=== PATIENT | female | born 1935 | race Caucasian/White ===

== ENCOUNTER → 2016-07-07 | Outpatient (CLI) | payer MEDICARE | END | disposition home or self-care (01) | LOC: PCVCCLINIC 15:00 | PROVIDERS: ATTEND Internal Medicine Cardiovascular Disease | DX: I48.91 Unspecified atrial fibrillation (principal); E78.5 Hyperlipidemia, unspecified; G89.29 Other chronic pain; I10 Essential (primary) hypertension; R60.9 Edema, unspecified; I87.2 Venous insufficiency (chronic) (peripheral) | CPT/HCPCS: 80061; 93005; G0463 ==

== ENCOUNTER → 2017-03-16 | Outpatient (CLI) | payer MEDICARE ==
--- NOTE | 2017-03-16 17:01 | PCVCIMAG ---
APPROVED REPORT Study performed: 03/16/2017 14:36:46 EXAM: Comprehensive 2D, Doppler, and color-flow Echocardiogram Patient Location: Echo lab Status: routine BSA: 1.80 HR: 73 bpmBP: 138/80 mmHg Rhythm: NSR Other Information Study Quality: Technically Limited Indications Atrial fib. Hypertension, Hyperlipidemia. Fatigue 2D Dimensions IVSd: 9.57 (7-11mm)LVOT Diam: 18.28 (18-24mm) LVDd: 44.83 mm PWd: 7.47 (7-11mm)Ascending Ao: 35.21 (22-36mm) LVDs: 38.03 (25-40mm) Left Atrium: 39.55 (27-40mm) Aortic Root: 27.93 mm LV Single Plane 4CH: 64.43 % Robison's LVEF: 32.25 % Volumes Left Atrial Volume (Systole) Single Plane 4CH: 42.20 mLSingle Plane 2CH: 58.61 mL LA ESV Index: 28.00 mL/m2 Aortic Valve AoV Peak David.: 1.65 m/s AO Peak Gr.: 10.95 mmHgLVOT Max P.16 mmHg LVOT Max V: 1.24 m/s EDUARDO Vmax: 1.97 cm2 Mitral Valve E/A Ratio: 0.96 MV Decel. Time: 168.31 ms MV E Max David.: 0.91 m/s MV A David.: 0.95 m/s IVRT: 100.35 ms Pulmonary Valve PV Peak Gr.: 1.90 mmHg Tricuspid Valve TR Peak David.: 3.19 m/s TR Peak Gr.: 40.83 mmHg Left Ventricle The left ventricle is normal size. There is normal LV segmental wall motion. There is normal left ventricular wall thickness. Left ventricular systolic function is normal. The left ventricular ejection fraction is within the normal range. LVEF is 55-60%. Right Ventricle The right ventricle is normal size. The right ventricular systolic function is normal. Atria The left atrium size is normal. The right atrium size is normal. Aortic Valve The aortic valve is normal in structure. No aortic regurgitation is present. There is no aortic valvular stenosis. Mitral Valve The mitral valve is normal in structure. There is no mitral valve regurgitation noted. No evidence of mitral valve stenosis. Tricuspid Valve The tricuspid valve is normal in structure. Trace tricuspid regurgitation. Pulmonary artery pressure is 47mmhg. Pulmonic Valve The pulmonary valve is normal in structure. There is no pulmonic valvular regurgitation. Great Vessels The aortic root is normal in size. IVC is normal in size and collapses with >50% inspiration Pericardium There is no pericardial effusion. <Conclusion> The left ventricle is normal size. Left ventricular systolic function is normal. The left ventricular ejection fraction is within the normal range. LVEF is 55-60%. The right ventricle is normal size. The left atrium size is normal. There is no aortic valvular stenosis. There is no mitral valve regurgitation noted. Trace tricuspid regurgitation. Pulmonary artery pressure is 47mmhg. There is no pericardial effusion.
== END | disposition home or self-care (01) ==
LOC: PCVCIMAG 14:32
PROVIDERS: ATTEND Internal Medicine Cardiovascular Disease
DX: I48.0 Paroxysmal atrial fibrillation (principal); I87.2 Venous insufficiency (chronic) (peripheral); G47.33 Obstructive sleep apnea (adult) (pediatric); E78.00 Pure hypercholesterolemia, unspecified; I10 Essential (primary) hypertension; I07.1 Rheumatic tricuspid insufficiency; M19.90 Unspecified osteoarthritis, unspecified site; Z86.73 Personal history of transient ischemic attack (TIA), and cerebral infarction without residual deficits; Z96.651 Presence of right artificial knee joint; Z79.899 Other long term (current) drug therapy; Z87.891 Personal history of nicotine dependence
CPT/HCPCS: 93005; 93306; G0463

== ENCOUNTER → 2017-06-25 | Outpatient (CLI) | payer MEDICARE | END | disposition home or self-care (01) | LOC: PCVCCLINIC 14:22 | DX: I48.0 Paroxysmal atrial fibrillation (principal); E78.5 Hyperlipidemia, unspecified; I10 Essential (primary) hypertension; G89.4 Chronic pain syndrome; G47.33 Obstructive sleep apnea (adult) (pediatric); J44.9 Chronic obstructive pulmonary disease, unspecified; E78.2 Mixed hyperlipidemia; Z87.891 Personal history of nicotine dependence; Z79.899 Other long term (current) drug therapy | CPT/HCPCS: 93005; G0463 ==

== ENCOUNTER → 2017-11-09 | Outpatient (CLI) | payer MEDICARE | END | disposition home or self-care (01) | LOC: PCVCCLINIC 14:01 | DX: I48.2 Chronic atrial fibrillation (principal); I87.2 Venous insufficiency (chronic) (peripheral); I10 Essential (primary) hypertension; Z87.891 Personal history of nicotine dependence; Z79.899 Other long term (current) drug therapy | CPT/HCPCS: 80061; 93005; G0463 ==

== ENCOUNTER → 2018-05-18 | Outpatient (CLI) | payer MEDICARE | END | disposition home or self-care (01) | LOC: PCVCCLINIC 15:12 | PROVIDERS: ATTEND Internal Medicine Cardiovascular Disease | DX: I48.91 Unspecified atrial fibrillation (principal); I87.2 Venous insufficiency (chronic) (peripheral); E78.5 Hyperlipidemia, unspecified; E78.2 Mixed hyperlipidemia; I10 Essential (primary) hypertension; G47.33 Obstructive sleep apnea (adult) (pediatric); Z79.899 Other long term (current) drug therapy; Z87.891 Personal history of nicotine dependence | CPT/HCPCS: 80061; 93005; G0463 ==

== ENCOUNTER → 2018-10-05 | Outpatient (CLI) | payer MEDICARE | END | disposition home or self-care (01) | LOC: PCVCCLINIC 13:53 | PROVIDERS: ATTEND Internal Medicine Cardiovascular Disease | DX: Z01.818 Encounter for other preprocedural examination (principal); I48.0 Paroxysmal atrial fibrillation; E78.00 Pure hypercholesterolemia, unspecified; R00.1 Bradycardia, unspecified; G89.4 Chronic pain syndrome; I87.303 Chronic venous hypertension (idiopathic) without complications of bilateral lower extremity; I10 Essential (primary) hypertension | CPT/HCPCS: 36415; 80061; 93005; G0463 ==

== ENCOUNTER → 2018-10-13 | Outpatient (CLI) | payer MEDICARE ==
--- NOTE | 2018-10-13 12:34 | PCVCIMAG ---
APPROVED REPORT Study performed: 10/13/2018 10:32:04 EXAM: Comprehensive 2D, Doppler, and color-flow Echocardiogram Patient Location: Echo lab Status: routine BSA: 1.76 HR: 72 bpmBP: 140/80 mmHg Rhythm: NSR Other Information Study Quality: Adequate Risk Factors: Cardiac Risk Factors: Hyperlipidemia Indications parosysmal atrial fib. Pre op knee surgery, Edema 2D Dimensions IVSd: 13.69 (7-11mm)LVOT Diam: 20.56 (18-24mm) LVDd: 45.10 mm PWd: 9.30 (7-11mm)Ascending Ao: 30.58 (22-36mm) LVDs: 24.27 (25-40mm) Left Atrium: 37.93 (27-40mm) Aortic Root: 30.07 mm LV Single Plane 4CH: 63.14 % LV Single Plane 2CH: 65.57 % Biplane EF: 65.6 % Volumes Left Atrial Volume (Systole) Single Plane 4CH: 37.06 mLSingle Plane 2CH: 50.16 mL LA ESV Index: 24.00 mL/m2 Aortic Valve AoV Peak David.: 1.54 m/s AO Peak Gr.: 9.50 mmHgLVOT Max P.16 mmHg LVOT Max V: 1.34 m/s EDUARDO Vmax: 2.88 cm2 Mitral Valve E/A Ratio: 1.2 MV Decel. Time: 184.29 ms MV E Max David.: 1.05 m/s MV A David.: 0.91 m/s TDI E/Lateral E': 7.50E/Medial E': 8.75 Medial E' David.: 0.12 m/s Lateral E' David.: 0.14 m/s Pulmonary Valve PV Peak Gr.: 3.34 mmHg Pulmonary Vein P Vein S: 0.45 m/sP Vein A: 0.38 m/s P Vein D: 0.32 m/sP Vein A Dur.: 93.4 msec P Vein S/D Ratio: 1.41 Tricuspid Valve TR Peak David.: 3.42 m/s TR Peak Gr.: 46.91 mmHg Left Ventricle The left ventricle is normal size. There is normal LV segmental wall motion. There is normal left ventricular wall thickness. Left ventricular systolic function is normal. The left ventricular ejection fraction is within the normal range. LVEF is 60-65%. The left ventricular diastolic function is normal. Right Ventricle The right ventricle is normal size. The right ventricular systolic function is normal. Atria The left atrium size is normal. The right atrium size is normal. Aortic Valve The aortic valve is normal in structure. No aortic regurgitation is present. There is no aortic valvular stenosis. Mitral Valve The mitral valve is normal in structure. Trace mitral regurgitation. No evidence of mitral valve stenosis. Tricuspid Valve The tricuspid valve is normal in structure. Mild tricuspid regurgitation. Pulmonary artery pressure is 54mmHg. Pulmonic Valve The pulmonary valve is normal in structure. Trace pulmonic regurgitation. Great Vessels The aortic root is normal in size. IVC is normal in size and collapses >50% with inspiration. Pericardium There is no pericardial effusion. <Conclusion> The left ventricle is normal size. LVEF is 60-65%. The left ventricular diastolic function is normal. The right ventricle is normal size. The left atrium size is normal. The aortic valve is normal in structure. Trace mitral regurgitation. The aortic root is normal in size. There is no pericardial effusion.
== END | disposition home or self-care (01) ==
LOC: PCVCIMAG 10:31
PROVIDERS: ATTEND Internal Medicine Cardiovascular Disease
DX: Z01.818 Encounter for other preprocedural examination (principal); I07.1 Rheumatic tricuspid insufficiency; R00.1 Bradycardia, unspecified; R60.0 Localized edema; E78.5 Hyperlipidemia, unspecified; I10 Essential (primary) hypertension; J44.9 Chronic obstructive pulmonary disease, unspecified
CPT/HCPCS: 93306

== ENCOUNTER → 2018-10-18 | Outpatient (CLI) | payer MEDICARE ==
[~2018-10-18] MED LIST: AMINOPHYLLINE 250 MG/10 ML VIAL. ONE; REGADENOSON 0.4 MG/5 ML DISP.SYRIN. IV ONE
--- NOTE | 2018-10-20 16:22 | PCVCIMAG ---
APPROVED REPORT Imaging Protocol: Rest Tc-99m/Stress Tc-99m 1 day Study performed: 10/18/2018 13:24:57 Indication: Atrial Fibrillation, Pre-Operative CV evaluation Patient Location: Out-Patient Stress Nurse: Bethanie Armstrong RN, Jonna Cerda RN CO Tech:Monica JEREMIAH GrossMT Ht: 5 ft 1 in Wt: 169 lbs BSA: 1.76 m2 HR: 75 bpm BP: 167/77 mmHg BMI: 31.92 Rhythm: Sinus Rhythm Medical History Medical History: HTN, Former Smoker Medications: Klonopin, Lasix, Dilaudid, Bystolic Allergies: No known drug allergies Cardiac Risk Factors: Age Pretest Chest Pain Characteristics: No chest pain Exercise History: Sedentary Meds Held (24 hrs): Bystolic Resting Data Rest SPECT myocardial perfusion imaging was performed in supine position 45 minutes following the intravenous injection of 9.9 mCi of Tc-99m Sestamibi. Time of rest injection: 1300 Date: 10/18/2018 Administration Route: IV Administration Site: Left AC Pharmacologic Stress Pharmacologic stress test was performed by injecting Regadenoson 0.4 mg IV push over 10-15 seconds immediately followed by the intravenous injection of 33.8 mCi of Tc-99m Sestamibi. Time of stress injection: 1430 Date: 10/18/2018 Administration Route: IV Administration Site: Left AC Gated Stress SPECT was performed 45 minutes after stress injection. The images were gated to evaluate regional wall motion and calculate left ventricular ejection fraction. Stress Test Details Stress Test: Pharmacologic stress testing performed using 0.4 mg of regadenoson per 5 mL given IV over 10 seconds. Reason for pharmacologic stress test: pt in a wheelchair. Reversal agent Aminophyline 100 mg, given intravenously for headache, muscle aches. HRMax Heart Rate (APMHR): 138 bpm Resting HR: 75 bpmTarget HR (85% APMHR): 117 bpm Max HR Achieved: 92 bpm % of APMHR: 66 Recovery HR: 84 bpm BP Resting BP: 167/77 mmHg Max BP: 171/76 mmHg Recovery BP: 169/87 mmHg ECG Resting ECG: Sinus Rhythm Stress ECG: Sinus Rhythm ST Change: Non-ischemic Arrhythmia: None Recovery ECG: Sinus Rhythm Clinical Reason for Termination: Completed protocol Stress Symptoms: Headache, Leg pain Exercise duration: 0 min 55 sec Symptoms resolved during recovery with aminophylline. Study Quality Study: Good Artifact: Moderate Diaphragmatic artifact Study Data Post stress, the left ventricular ejection was 80%.. SSS: 10 SRS: 15 SDS: 1 TID = 0.84. Perfusion There is a medium area of moderately reduced uptake in the basal and mid segment of the inferior wall which is seen on the stress images as well as the resting images. This area thickens and moves normally and is most consistent with attenuation artifact. Wall Motion Normal left ventricular wall motion. Nuclear Conclusion ECG Findings: negative for ischemia Clinical Findings: non-diagnostic Nuclear Findings: negative for ischemia Exercise Capacity: not assessed Left Ventricular Function: normal Risk Study: low This study is of low probability for inducible ischemia or prior infarct. Normal global and segmental LV systolic function. Artifact: Moderate Diaphragmatic artifact
== END | disposition home or self-care (01) ==
LOC: PCVCIMAG 13:10
PROVIDERS: ATTEND Internal Medicine Cardiovascular Disease
DX: Z01.810 Encounter for preprocedural cardiovascular examination (principal); I48.91 Unspecified atrial fibrillation; I10 Essential (primary) hypertension; Z87.891 Personal history of nicotine dependence
CPT/HCPCS: 78452; 93017; A9500; J0280; J2785